=== PATIENT | female | born 1965 | race Caucasian/White ===

== ENCOUNTER 2023-05-12 08:28 | Emergency (ER) | payer BC, SELFPAY ==
--- NOTE | ~2023-05-12 | XR_ITS ---
EXAMINATION: XR hand RT min 3V INDICATION: Right hand pain TECHNIQUE: Three views of the right hand are obtained. COMPARISON: None available FINDINGS: There is an acute, traumatic, oblique tuft fracture of the first distal phalanx. Soft tissu e swelling surrounds the fracture. 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 IMPRESSION: 1. Acute tuft fracture of the first distal phalanx. Reviewed, dictated and finalized at location D.
[2023-05-12 08:38] VITALS: BP 148/80; PULSE 91; RESP 20; TEMP 36.8; O2SAT 98
[2023-05-12 08:51] VITALS: BP 148/80; PULSE 91; RESP 20; TEMP 36.8; O2SAT 98
--- NOTE | 2023-05-12 08:55 | ED.UPPEXIN ---
HPI - Extremity Injury (Upper) General Chief Complaint: Extremity Injury, Upper Stated Complaint: Fall Injury/ Right Hand Source: patient, family and RN notes reviewed History of Present Illness HPI narrative: 57 yo F presents to urgent care with complaints of right hand and thumb pain. Pt states [employer], she was walking her dog when her dog got excited after seeing another dog and caused pt to fall. Pt states she thinks she fell onto her left side but her right arm, shoulder, and chest is sore. Pt denies any head injury or neck pain. Pt denies any LOC. Denies any abdominal pain, chest pain, or SOB. Pt states she did apply ice [employer]. Related Data Home Medications Medication Instructions Recorded Confirmed alprazolam 0.25 mg tablet 0.25 mg PO BID PRN ANXIETY OR 05/12/23 05/12/23 INSOMNIA losartan 100 mg tablet 100 mg PO DAILY 05/12/23 05/12/23 Allergies Allergy/AdvReac Type Severity Reaction Status Date / Time Sulfa (Sulfonamide Allergy Intermediate Hives Verified 05/12/23 08:50 Antibiotics) lisinopril AdvReac Intermediate Cough Verified 05/12/23 08:50 Review of Systems Review of Systems: Pertinent positives and pertinent negatives per HPI. PMFSH Comments At the time of my signature, I reviewed and agree with the nursing past medical, surgical, social, and family history. There is no relevant family history pertinent to the patient complaint. Exam Narrative: GENERAL: This is a well-nourished, well-developed patient, in no apparent distress. HEAD: normocephalic, atraumatic. EYES: Sclera clear/white. Vision is grossly intact. EARS: External ears normal, auditory canals clear and without drainage. Hearing grossly intact. NOSE: External nose normal with no obvious nasal discharge, nares without redness, no rhinorrhea. THROAT: Mucous membranes moist, posterior pharynx clear. NECK: Neck supple, non-tender without lymphadenopathy, masses or thyromegaly. CARDIOVASCULAR: Regular rate and rhythm without murmurs, gallops, or rubs. RESPIRATORY: Clear to auscultation. Breath sounds equal bilaterally. No wheezes, rales, or rhonchi. GASTROINTESTINAL: Abdomen soft, non-tender, nondistended. Bowel sounds are active. No hepato-splenomegaly, or palpable masses. No guarding. SKIN: right distal thumb noted to be erythremic. base of right thumbnail noted to be purple, covering approximately 1/4 of the nail. NEURO: awake, alert, and oriented to person, place and time. There were no obvious focal neurologic abnormalities. EXTREMITIES: Tenderness and swelling noted to right thumb and thenar process. BACK: Nontender without deformity or crepitus. No flank tenderness. Course Course Level of Care: Express Care Visit Vital Signs Vital signs: Vital Signs Temperature 98.3 F 05/12/23 08:38 Pulse Rate 91 05/12/23 08:38 Respiratory Rate 20 05/12/23 08:38 Blood Pressure 148/80 H 05/12/23 08:38 Pulse Oximetry 98 05/12/23 08:38 Oxygen Delivery Room Air 05/12/23 08:38 Temperature 98.3 F 05/12/23 08:51 Pulse Rate 91 05/12/23 08:51 Respiratory Rate 20 05/12/23 08:51 Blood Pressure 148/80 H 05/12/23 08:51 Pulse Oximetry 98 05/12/23 08:51 Oxygen Delivery Room Air 05/12/23 08:51 Reviewed MDM - Extremity Injury (Upper) MDM Narrative Medical decision making narrative: Use the RICE method at home. May take 600 mg of ibuprofen every 6 hours if needed, WITH FOOD. May take the hydrocodone if needed as well. Do not drive or drink alcohol while taking the hydrocodone. Also, do not take the hydrocodone with alprazolam. Call today and make follow-up appointment with hand/Plastics specialist or orthopedist. Go to the ER with any new or worsening symptoms. Differential Diagnosis Differential diagnosis: Likely finger sprain, dislocation of finger and fracture of hand Imaging Data Radiologist's impression: [facility] [id number] [place] [address] XRay Report Sig
== END 2023-05-12 09:30 | disposition home or self-care (01) ==
PROVIDERS: Emergency Provider Nurse Practitioner Family
DX: S62.521A Displaced fracture of distal phalanx of right thumb, initial encounter for closed fracture (principal); W19.XXXA Unspecified fall, initial encounter; Y93.K1 Activity, walking an animal; S60.111A Contusion of right thumb with damage to nail, initial encounter; I10 Essential (primary) hypertension; F41.9 Anxiety disorder, unspecified; Z90.711 Acquired absence of uterus with remaining cervical stump
CPT/HCPCS: 29130; 73130; 99214; G0463